=== PATIENT | male | born 1970 ===

== ENCOUNTER 2023-09-07 21:54 | Inpatient (IN) | payer OTHER ==
--- OUTSIDE RECORDS SUMMARY | 2023-09-07 21:58 | XMS REPORT | Continuity of Care Document ---
:1970 Author Organization [facility] t Address [address] [facility] [address] [place] [address] Care Team Providers Name Role Phone Colt Bedoya MD Primary Care Physician [phone] George Milian Attending Clinician Unavailable Pretty Attending Clinician Unavailable [facility] Attending Clinician Unavailable Yong Sal Attending Clinician Unavailable Pretty Admitting Clinician Unavailable Yong Sal Admitting Clinician Unavailable Payers Payer Name Policy Type Policy Number Effective Date Expiration Date [place] (EPO) [id number] 2022 00:00:00 Problems Condition Condition Condition Status Onset Resolution Last Treating Co mments Source Name Details Category Date Date Treatment Clinician Date Colitis Colitis Disease Active 2016-10 [facility]ospita 00 l Non morbid Non morbid Disease Active M ethodi obesity obesity 11-22 due to due to 00:00: Hospita excess excess 00 l calories calories Non morbid Non morbid Disease Active M ethodi obesity obesity 11-22 st due to due to 00:00: Hospita excess excess 00 l calories calories [id number] Primary Problem Comm on osteoarthr Spirit itis of - [facility] left knee [facility] [id number] Arthritis Problem Co mmon [id number] of knee, Spirit right - [facility] Ulcerative Ulcerative Disease Active M ethodi colitis colitis [facility] Irritable Irritable Disease Active Met hodi bowel bowel st syndrome syndrome Hospit a l GI GI Disease Active Methodi (gastroint (gastroint st estinal estinal Hospita bleed) bleed) l Colon Colon Disease Active Methodi polyps polyps [facility] Chronic Chronic Disease Active Methodi diarrhea diarrhea [facility] Allergies, Adverse Reactions, Alerts Allergy Allergy Status Severity Reaction(s) Onset Inactive Treating Comm ents Source Name Type Date Date Clinician Sulfa DA Active U OBSTRUCTION [facility] (Sulfona OF AIRWAY 6-05 Clear mide 00:00: George Antibiot [facility] Penicill DA Active U [facility]STRUCTION [facility] ins OF AIRWAY 6-05 Clear 00:00: George [facility] Penicill Propensi Active 2015-10 Method i ins ty to 12-09 st adverse 00:00: Hospita reaction 00 l s to drug Sulfaben Propensi Active 2015-10 Method i zamide ty to 12-09 st adverse 00:00: Hospita reaction 00 l s to drug No Known DA Active U 2008- [facility] Contrast 3- Clear Allergie 00:00: George s [facility] No Known DA Active U 2008- [facility] Food 3- Clear Allergie 00:00: George s [facility] No Known DA Active U 2009-0 [facility] Other 3- Clear Allergie 00:00: George s [facility] ROCEPHIN DA Active U 2008- [facility] 3- Clear 00:00: George [facility] No Known DA Active U 2008-0 [facility] Drug 2-11 Clear Intolera 00:00: George nces [facility] [id number] Drug Active Unknown Common 85 allergy Spirit [facility] Substanc Substanc Active Unknown Commo n e with e with Spirit sulfonam sulfonam - [facility] lavell lavell St [facility]ur [facility] erial erial mechanis mechanis m of m of action action (substan (substan ce) ce) Family History Family Member Diagnosis Comments Start Date Stop Date Source Natural father Colon cancer [facility] Maternal grandmother Ulcerative colitis [facility] Natural mother Pancreatic cancer [facility] Social History Social Habit Start Date Stop Date Quantity Comments Source History of Tobacco Current Smoker Co mmon Spirit - Use [facility] Sexual orientation Method ist [facility] Gender identity [facility] Alcohol intake 2017-10-11 2017-10-11 Current drinker [facility] 00:00:00 00:00:00 of alcohol Hospital (finding) History of Social 2017-10-11 2017-10-[address] function 00:00:00 00:00:00 Hospital Alcohol Comment 2017-10-11 2017-10-11 scotch 2 glasses [facility] 00:00:00 00:00:00 [facility] Hospital Sex Assigned At [birth year] [facility] 00:[facility] 00:[facility]:00 Hospital Smoking Status Start Date Stop Date Source Current Smoker 2022-11-03 00:00:00 Common Spiri t [facility] Light tobacco smoker 2017-10-11 00:00:00 [facility] Medications Ordered Filled Start Stop Current Ordering Indication Dosage Frequency Signature Comments Components Source Medication Medication Date Date Medication? Clinician (SIG) Name Name [facility] No 30mg Com 11-02 Spirit 00:00: - [facility] OrthoVisc OrthoVisc No 30mg Com 11-02 Spirit 00:00: - [facility] traMADol traMADol 2021-10 No 1{table traMADol HCl 50 MG HCl 50 MG 2-20 t_as_ne HCl 50 MG 00:00: eded} [facility] 2021-10 No 30mg Com 12-20 Spirit 00:00: - [facility] traMADol traMADol 2021-10 No 1{table traMADol HCl 50 MG HCl 50 MG 2-20 t_as_ne HCl 50 MG 00:00: eded} Ortho[facility]ats[facility] 2021-10 No 30mg Com 12-20 Spirit 00:00: - [facility] 00 [facility] Lazaroalog 2021-10 No 40mg Common (Triamcinol (Triamcinol 2-05 S pirit one) one) 00:00: - [facility]I 00 [facility] Orthovisc Orthovisc 2021-10 No 15mg Com mon 2 Spirit 00:00: - [facility] 00 [facility] Bupivicaine Bupivicaine 2021-10 No 2.5mg Common [place] Lawndale 2-05 Spirit 00:00: - [facility] 00 [facility] Lazaroalog 2021-10 No 40mg Common (Triamcinol (Triamcinol 2-05 S pirit one) one) 00:00: - [facility]I 00 [facility] Bupivicaine Bupivicaine 2021-10 No 2.5mg Common [place] Lawndale 2-05 Spirit 00:00: - [facility] 00 [facility] Albert 2021-10 No 40mg Common (Triamcinol (Triamcinol 2-05 S pirit one) one) 00:00: - [facility]I 00 [facility] OrthoVisc OrthoVisc 2021-10 No 15mg Com mon 2 Spirit 00:00: - [facility] 00 [facility] Bupivicaine Bupivicaine 2021-10 No 2.5mg Common [place] Lawndale 2-05 Spirit 00:00: - [facility] 00 [facility] Albert 2021-10 No 40mg Common (Triamcinol (Triamcinol 2-05 S pirit one) one) 00:00: - [facility]I 00 [facility] Bupivicaine Bupivicaine 2021-10 No 2.5mg Common [place] Lawndale 2-05 Spirit 00:00: - [facility] 00 [facility] Orthovisc Orthovisc 0 No 15mg Com tue 8 Spirit 00:00: - [facility] 00 [facility] OrthoVisc OrthoVisc 0 No 15mg Com 06-29 Spirit 00:00: - [facility] 00 [facility] traMADol traMADol 0 No 1{table traMADol HCl 50 MG HCl 50 MG 8-25 t_as_ne HCl 50 MG 00:00: eded} 00 [place] Lazaroalog 2022-0 No 40mg Common (Triamcinol (Triamcinol 8-25 S pirit one) one) 00:00: - [facility]I 00 [facility] Bupivicaine Bupivicaine 2021-0 No 2.5mg Common [place] Lawndale 8-25 Spirit 00:00: - [facility] 00 [facility] Orthovisc Orthovisc 2021-0 No 15mg Com mon 8 Spirit 00:00: - [facility] 00 [facility] traMADol traMADol 2021-0 No 1{table traMADol HCl 50 MG HCl 50 MG 25 t_as_ne HCl 50 MG 00:00: eded} 00 Kenalog Kenalog 2021-0 No 40mg Common (Triamcinol (Triamcinol 8-25 S pirit one) one) 00:00: - [facility]I 00 [facility] Bupivicaine Bupivicaine 2021-0 No 2.5mg Common [place] Lawndale 8-25 Spirit 00:00: - [facility] OrthoVisc OrthoVisc 2021-0 No 15mg Com mon 06-24 Spirit 00:00: - [facility] 00 [facility] Orthovisc Orthovisc 2021-0 No 15mg Com mon 8 Spirit 00:00: - [facility] 00 [facility] OrthoVisc OrthoVisc 2-0 No 15mg Com mon 8- Spirit 00:00: - [facility] 00 [facility] Bupivicaine Bupivicaine 2021-0 No 2.5mg Common [place] Lawndale 6-27 Spirit 00:00: - [facility]I 00 [facility] Kenalog Kenalog 2021-0 No 40mg Common (Triamcinol (Triamcinol 6-27 S pirit one) one) 00:00: - [facility]I 00 [facility] Bupivicaine Bupivicaine 2-0 No 2.5mg Common [place] Lawndale 6-27 Spirit 00:00: - [facility] 00 [facility] Kenalog Kenalog 2021-0 No 40mg Common (Triamcinol (Triamcinol 6-27 S pirit one) one) 00:00: - [facility]I 00 [facility] Bupivicaine Bupivicaine 2-0 No 2.5mg Common [place] Lawndale 4-26 Spirit 00:00: - [facility] Kenalog Kenalog No 40mg Common (Triamcinol (Triamcinol 4-26 S pirit one) one) 00:00: - [facility] Bupivicaine Bupivicaine No 2.5mg Common [place] Lawndale -26 Spirit 00:00: - [facility] Kenalog Kenalog No 40mg Common (Triamcinol (Triamcinol 4-26 S pirit one) one) 00:00: - [facility] DULoxetine 2016-10 Yes 60mg QD Take 60 mg M ethodi (CYMBALTA) 2-[address] 60 MG 12:35: daily. Hospita capsule 39 l zolpidem CR 2016-10 Yes 12.5mg QD Take 12.5 Methodi (AMBIEN CR) 2-[address] 12.5 MG CR 12:35: mouth Hospit a tablet 39 nightly as l needed for sleep. DULoxetine 2016-10 Yes 60mg QD Take 60 mg M ethodi (CYMBALTA) 2-[address] 60 MG 12:35: daily. Hospita capsule 39 l zolpidem CR 2016-10 Yes 12.5mg QD Take 12.5 Methodi (AMBIEN CR) 2-[address] 12.5 MG CR 12:35: mouth Hospit a tablet 39 nightly as l needed for sleep. Zolpidem Zolpidem No Zolpidem Tartrate Tartrate Tartrate buPROPion buPROPion No buPROPion HCl ER (XL) HCl ER (XL) HCl ER (XL) Stelara Stelara No Stelara Zolpidem Zolpidem No Zolpidem Tartrate Tartrate Tartrate buPROPion buPROPion No buPROPion HCl ER (XL) HCl ER (XL) HCl ER (XL) Stelara Stelara No Stelara Vital Signs Vital Name Observation Time Observation Value Comments Source height 2022-11-02 08:00:00 70 [in_i] Common [facility] weight 2022-11-02 08:00:00 384 [lb_av] Common [facility] temperature 2022-11-02 08:00:00 97.8 [degF] Common S pirit [facility] bmi 2022-11-02 08:00:00 55.09 kg/m2 Common S pirit - [facility] blood pressure 2022-11-02 08:00:00 136 mm[Hg] Common Spirit - systolic [facility] blood pressure 2022-11-02 08:00:00 86 mm[Hg] Common Spirit - diastolic [facility] Procedures Procedure Date / Time Performed Performing Clinician Cora infante [id number] 2023-04-11 00:00:00 [facility] Plan of Care Planned Activity Planned Date Details Comments Source Future Scheduled 2023-08-26 [facility] Test 03:05:15 malignant neoplasm of colon (procedure) [code = 708095152] Future Scheduled 2023-08-26 [facility] Test 03:05:15 malignant neoplasm of colon (procedure) [code = 439711212] Future Scheduled 2023-08-26 [facility] Test 03:05:15 malignant neoplasm of colon (procedure) [code = 759402623] Future Scheduled 2023-08-26 COVID-[address] [facility] Test 03:05:15 (#1) [code = COVID-19 VACCINE (#1)] Future Scheduled 2023-08-26 [facility] Test 03:05:15 malignant neoplasm of colon (procedure) [code = 928751087] Future Scheduled 2023-08-26 [facility] Test 03:05:15 malignant neoplasm of colon (procedure) [code = 171608828] Future Scheduled 2023-08-26 SHINGLES VACCINES [facility] Test 03:05:15 (1 of 2) [code = SHINGLES VACCINES (1 of 2)] Future Scheduled 2023-08-26 INFLUENZA VACCINE [facility] Test 03:05:15 (#1) [code = INFLUENZA VACCINE (#1)] Future Scheduled 2023-04-07 [facility] Test 22:53:05 malignant neoplasm of colon (procedure) [code = 043511061] Future Scheduled 2023-04-07 [facility] Test 22:53:05 malignant neoplasm of colon (procedure) [code = 568283641] Future Scheduled 2023-04-07 [facility] Test 22:53:05 malignant neoplasm of colon (procedure) [code = 043714300] Future Scheduled 2023-04-07 COVID-[address] [facility] Test 22:53:05 (#1) [code = COVID-19 VACCINE (#1)] Future Scheduled 2023-04-07 [facility] Test 22:53:05 malignant neoplasm of colon (procedure) [code = 381567965] Future Scheduled 2023-04-07 [facility] Test 22:53:05 malignant neoplasm of colon (procedure) [code = 644665883] Future Scheduled 2023-04-07 SHINGLES VACCINES [facility] Test 22:53:05 (1 of 2) [code = SHINGLES VACCINES (1 of 2)] Future Scheduled 2023-04-07 INFLUENZA VACCINE [facility] Test 22:53:05 [code = INFLUENZA VACCINE] Encounters Start End Encounter Admission Attending Care Care Encounter Source Date/Time Date/Time Type Type Clinicians Facility Department ID 2022-11-02 Outpatient Maicol, [facility] [id number] Common 07:57:02 George [id number] [facility] 2023-08-26 2023-08-26 Outpatient FOG_Stocks_ AOSM AOSM [id number] Arlene 00:00:00 00:00:00 Boris [id number] [facility] 2023-08-21 2023-08-21 Outpatient FOG_Stocks_ AOSM AOSM 650 [id number] Arlene 00:00:00 00:00:00 Boris [id number] [facility] 2023-07-17 2023-07-17 Outpatient FOG_Stocks_ AOSM AOSM [id number] Arlene 00:00:00 00:00:00 Boris [id number] [facility] 2023-06-29 2023-06-29 [facility] [id number] [facility] 13:30:00 13:30:[address] 2023-06-182023-06-18 Outpatient FOG_Stocks_ AOSM AOSM [id number] Arlene 00:00:00 00:00:00 Boris [id number] [facility] 2023-06-17 2023-06-17 Outpatient FOG_Stocks_ AOSM AOSM 650 [id number] Arlene 00:00:00 00:00:00 Boris [id number] [facility] 2023-06-12 2023-06-12 Outpatient FOG_Stocks_ AOSM AOSM 650 [id number] Arlene 00:00:00 00:00:00 Boris [id number] [facility] 2023-05-16 2023-05-16 Outpatient FOG_Stocks_ AOSM AOSM 650 [id number] Arlene 00:00:00 00:00:00 Boris [id number] [facility] 2023-05-16 2023-05-16 Outpatient FOG_Stocks_ AOSM AOSM 650 [id number] Arlene 00:00:00 00:00:00 Boris [id number] [facility] 2023-05-08 2023-05-08 Outpatient FOG_Stocks_ AOSM AOSM 650 [id number] Arlene 00:00:00 00:00:00 Boris [id number] [facility] 2023-05-08 2023-05-08 Outpatient FOG_Stocks_ AOSM AOSM 650 [id number] Arlene 00:00:00 00:00:00 Boris [id number] [facility] 2023-04-15 2023-04-15 Outpatient FOG_Stocks_ AOSM AOSM 650 [id number] Arlene 00:00:00 00:00:00 Boris [id number] [facility] 2023-04-11 2023-04-14 Inpatient EM Stocks, [facility] [id number] [facility] 08:37:00 11:11:00 Yong [place] [facility] 2023-04-13 2023-04-13 Outpatient FOG_Stocks_ AOSM AOSM 650 [id number] Arlene 00:00:00 00:00:00 Boris [id number] [facility] 2023-03-31 2023-03-31 Outpatient GEORGIA Sal [id number] [facility] 16:52:00 16:52:00 Yong Corbin [facility] 2023-03-31 2023-03-31 Outpatient FOG_Stocks_ AOSM AOSM 650 [id number] Arlene 00:00:00 00:00:00 Boris [id number] [facility] 2023-03-30 2023-03-30 Outpatient FOG_Stocks_ AOSM AOSM 650 [id number] Arlene 00:00:00 00:00:00 Boris [id number] [facility] 2023-01-17 2023-01-17 Outpatient FOG_Stocks_ AOSM AOSM 650 [id number] Arlene 00:00:00 00:00:00 Boris [id number] [facility] 2023-01-17 2023-01-17 Outpatient FOG_Stocks_ AOSM AOSM 650 [id number] Arlene 00:00:00 00:00:00 Boris [id number] [facility] 2023-01-10 2023-01-10 (TEL) [facility] [id number] Co mmon 00:00:00 00:00:00 [facility] 2022-11-02 2022-11-02 (IN/ASP) [facility] [id number] C ommon 00:00:00 00:00:00 INJ ASP [facility] Results Test Description Test Time Test Comments Results Result Comments Source VITAMIN D 25-HYDROXY (TOTAL) 2023-04-01 07:22:00 Test Item Value Reference Range Interpretation Comme nts VITAMIN D 25-HYDROXY (TOTAL) 18.6 ng/mL 30.0-100.0 L Vitamin D deficiency has been (test code = VITD25) defined by the [place] of[employer] and an Endocrine Society practic e guideline as alevel of serum 25-OH vitamin D less than 20 ng /mL (1,2).The Endocrine Socie ty went on to further define vitamin Dinsufficiency as a level between 21 and 29 ng/mL (2).1. IOM ([place] of M edicine). 2010. Dietary referen ce intakes for calcium and D. Kumar [place]: The National Subtech ies Press.2. Ashley MF, Chaka GUERRERO, Sandoval RUSHING, et al. Evaluation, veronica atment, and prevention of v itamin D deficiency: an Endocrine Society clinical practi ce guideline. JCEM. 2010; 96(1):1911-30.P erformed At: HD [facility] [address] [id number] Ender Frost MD Ph:[phone] COMPREHENSIVE METABOLIC [id number] 12:49:00 Test Item Value Reference Range Interpretation Comments SODIUM (test code = 142 mmol/L 136-145 N NA) POTASSIUM (test 4.2 mmol/L 3.5-5.1 N code = K) CHLORIDE (test code 106.0 mmol/L 98-107 N = CL) CARBON DIOXIDE 24.5 mmol/L 21-32 N (test code = CO2) GLUCOSE (test code 74 mg/dL 70-110 N = GLU) BLOOD UREA NITROGEN 13 mg/dL 7-18 N (test code = BUN) GLOMERULAR 82.5 >60 The Glomerular FILTRATION RATE Filtration R ate is a (test code = GFR) calculated parameterbased on serum Creatinin e, patient age and sex. GFR valuesless than 60 mL/min/1.73 squ are meters are mikey cative ofChronic Kidne y Disease. Values less than 15 mL/min/1.73squa re meters indicate Kidney failure. The calculation for GFR is based on the CK D-EPI (2020) calculat ion. This formulais race indifferent and is the recommended for marcell for GFRby the N [facility] Found[facility] on for Adults.The GFR will not calculate i f the sex is unknown or if thepatient's ag e is <18 years. CREATININE (test 1.07 mg/dL 0.55-1.30 N code = CREAT) TOTAL PROTEIN (test 7.2 g/dL 6.4-8.2 N code = PROT) ALBUMIN (test code 3.3 g/dL 3.4-5.0 L = ALB) GLOBULIN (test code 3.9 g/dL 2.2-4.2 N = GLOB) ALBUMIN/GLOBULIN 0.9 0.7-2.0 N RATIO (test code = A/G) CALCIUM (test code 9.2 mg/dL 8.2-10.1 N = CA) BILIRUBIN TOTAL 0.40 mg/dL 0.2-1.00 N (test code = BILT) SGOT/AST (test code 27.0 U/L 15-37 N = AST) SGPT/ALT (test code 48.0 U/L 12-78 N = ALT) ALKALINE 111 U/L 46-116 N PHOSPHATASE TOTAL (test code = ALKP) CBC W/AUTO [id number] 12:48:00 Test Item Value Reference Range Interpretation Comments WHITE BLOOD CELL (test code = WBC) 10.7 K/mm3 5.7-10.5 H RED BLOOD CELL (test code = RBC) 6.03 M/mm3 4.2-5.4 H HEMOGLOBIN (test code = HGB) 16.5 g/dL 12-16 H HEMATOCRIT (test code = HCT) 48.3 % 37-47 H MEAN CELL VOLUME (test code = MCV) 80 fL 80-98 N MEAN CELL HGB (test code = MCH) 27.4 pg 27-34 N MEAN CELL HGB CONCENTRATION (test 34.2 g/dL 30.8-34.1 H code = MCHC) RED CELL DISTRIBUTION WIDTH (test 16.2 % 11-16 H code = RDW) PLT (test code = PLT) 402 K/mm3 130-400 H MEAN PLATELET VOLUME (test code = 8.3 fL 8.9-12.1 L MPV) NEUTROPHIL % (test code = NT%) 77.6 % 45-70 H LYMPHOCYTE % (test code = LY%) 10.5 % 20-40 L MONOCYTE % (test code = MO%) 7.5 % 3-10 N EOSINOPHIL % (test code = EO%) 3.0 % 1-5 N BASOPHIL % (test code = BA%) 0.8 % 0.0-1.1 N NEUTROPHIL # (test code = NT#) 8.32 K/mm3 2.00-7.50 H LYMPHOCYTE # (test code = LY#) 1.13 K/mm3 1.50-4.00 L MONOCYTE # (test code = MO#) 0.81 K/mm3 0.2-0.8 H EOSINOPHIL # (test code = EO#) 0.32 K/mm3 0.04-0.4 N BASOPHIL # (test code = BA#) 0.09 K/mm3 0.02-0.10 N MANUAL DIFF REQUIRED (test code = NO MANUAL DIFF MDIFF) NUCLEATED RED BLOOD CELL (test 0 % 0-0 N code = NRBC) PROTHROMBIN [id number] 12:45:00 Test Item Value Reference Range Interpretation Comments PROTHROMBIN TIME 12.1 secs 10.1-12.5 N PATIENT (test code = PTP) INTERNATIONAL NORMAL 1.05 <2.0 RECOMME NDED THERAPEUTIC RATIO (test code = RANGE FOR ORAL INR) ANTICOAGULANTTR EATMENT: CONDITION INRPr ophylaxis of venous throm bosis in 2.0 - 3.0 high- risk medical or surg ical patientsTreatme nt of venous thrombos is 2.0 - 3.0Prevention o f embolism 2.0 - 3.0Prevention o f recurrent embol ism, or 3.0 - 4.5 patie nts with mechanical pros thetic intravascular v hernandez IS PATIENT ON ANTICOAGULANTS ? NHas Lab been notified if Patient is on Heparin Drip? NOIf Yes, orderCBC, OCCULT BLOOD, PT every other day NTHROMBOPLASTIN TIME [id number] 12:45:00 Test Item Value Reference Range Interpretation Comments PTT ACTIVATED (test code = APTT) 33.4 secs 24.9-37.0 N IS PATIENT ON ANTICOAGULANTS ? NHas Lab been notified if Patient is on Heparin Drip? NOIf Yes, orderCBC, OCCULT BLOOD, PT every other day N
[2023-09-07] MEDS ORDERED: ASPIRIN 81 MG CHEWABLE TABLET ONE (22:43)
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
[2023-09-07] MEDS ORDERED: NITROGLYCERIN 1 GM PKT TD ONE (23:31)
[2023-09-07] MEDS ORDERED: FUROSEMIDE 40 MG/4 ML VIAL ONE (23:31)
[2023-09-07] MEDS ORDERED: FAMOTIDINE 20 MG/2 ML VIAL IV ONE (23:31)
[2023-09-08 00:28] LABS: SARS-COV-2 RT PCR NEGATIVE (NEGATIVE)
[2023-09-08 00:39] LABS: Hematocrit 48.6 % (39.6-49.0); Lymphocytes % 8.4 % (15.3-44.8); MCV 79.9 fL (80-100); Platelets 423 thou/uL (152-406); RBC Red Blood Cell Count 6.08 M/uL (4.33-5.43)
[2023-09-08 00:41] LABS: Specific Gravity 1.025 (1.005-1.030); Urine Bacteria None Seen /HPF (<20); Urine Bilirubin NEGATIVE (Negative); Urine Blood Trace (Negative); Urine Clarity Clear (Clear); Urine Color Light-Yellow (Yellow); Urine Glucose NEGATIVE (Negative); Urine Mucus Slight /HPF (None Seen); Urine Protein TRACE (Negative); Urine RBC None Seen /HPF (None Seen); Urine Urobilinogen Normal (Normal); Urine pH 5.5 (5.0-7.0)
[2023-09-08 00:49] LABS: Protime INR 1.03
[2023-09-08 00:53] LABS: Albumin 3.1 g/dL (3.4-5.0); Bilirubin Direct 0.1 mg/dL (0-0.2); Bilirubin Indirect, Calculated 0.2 mg/dL (0.2-0.8); Bilirubin Total 0.3 mg/dL (0.2-1.0); Magnesium 1.7 mg/dL (1.6-2.4); Protein, Total 7.4 g/dL (6.4-8.2); Troponin High Sensitivity 46.2 pg/mL (<58.9)
[2023-09-08] MEDS ORDERED: MAGNESIUM SULFATE 1 gm IVPB 1 GM/100 ML BAG IV ONE (01:14)
[2023-09-08] MEDS ORDERED: carvediloL 6.25 MG TAB ONE (01:14)
[2023-09-08 04:28] VITALS: BMI 54.5
[2023-09-08] MEDS ORDERED: ACETAMINOPHEN 325 MG TABLET PO PRN (07:09)
[2023-09-08] MEDS: LOSARTAN POTASSIUM 50 MG TABLET PO SCH (07:27)
[2023-09-08] MEDS: ASPIRIN EC 81 MG TAB PO SCH (07:27)
[2023-09-08] MEDS: POTASSIUM 25 MEQ EFFERV TAB PO SCH (07:27)
[2023-09-08] MEDS: carvediloL 6.25 MG TAB PO SCH ×2 (07:27→20:19)
[2023-09-08] MEDS: ONDANSETRON 4 MG/2 ML VIAL IV PRN ×2 (07:28→20:18)
[2023-09-08] MEDS: MORPHINE 4 MG/ML SYR IV PRN ×2 (07:28→20:18)
[2023-09-08] MEDS: FAMOTIDINE 20 MG/2 ML VIAL IV SCH ×2 (07:28→20:18)
[2023-09-08] MEDS ORDERED: ONDANSETRON 4 MG (ODT) TAB ONE (07:33)
[2023-09-08] MEDS ORDERED: INFLUENZA VACCINE (for 6+ mo) 0.5 ML DOSE IMVAC ONE (09:00)
[2023-09-08] MEDS ORDERED: FUROSEMIDE 20 MG/ 2ML VIAL IV SCH (09:00)
[2023-09-08] MEDS: FUROSEMIDE 20 MG/ 2ML VIAL IV SCH ×2 (09:00→20:20)
[2023-09-08 11:59] LABS: Arterial Blood Carboxyhemoglob 1.1 % (0-1.5); Blood O2 Saturation 95.5 % (92-98.5)
--- NOTE | 2023-09-08 12:12 | RAD REPORT ---
EXAM DESCRIPTION: RAD - Chest Single View - 09/07/2023 10:37 pm CLINICAL HISTORY: Male, 53 years old, Chest pain;Dyspnea TECHNIQUE: 2 frontal views COMPARISON: None. FINDINGS: Soft tissue attenuation and beam underpenetration limit assessment. Support devices: Overlying telemetry leads. Lungs/pleura: No consolidation, pleural effusion, or pneumothorax. Heart and mediastinum: Cardiomediastinal silhouette has normal size and configuration. Other: No acute osseous findings. Healed fracture deformity of the left clavicle. IMPRESSION: No acute cardiopulmonary findings. Electronically signed by: Sherif Negron MD 09/07/2023 11:04 PM VICE PRESIDENT OF NURSING Due to temporary technical issues with the PACS/Fluency reporting system, reports are being signed by the in house radiologist without review as a courtesy to ensure prompt reporting. The interpreting r adiologist is fully responsible for the content of the report.
--- NOTE | 2023-09-08 12:19 | RAD REPORT ---
EXAM DESCRIPTION: US - Extrem Venous W Compress Khris - 09/07/2023 10:58 pm CLINICAL HISTORY: Male, 53 years old, Pain;Swelling COMPARISON: None. TECHNIQUE: Grayscale and color/spectral Doppler ultrasound of the bilateral lower extremities. FINDINGS: Normal flow and compressibility in the bilateral lower extremities common femoral, greater saphenous, femoral, popliteal, peroneal and posterior tibial veins. No intraluminal thrombus is visu alized. Visualized waveforms demonstrate normal respiratory variability. IMPRESSION: No sonographic evidence of deep venous thrombosis in the imaged bilateral lower extremit ies. Electronically signed by: Sherif Negron MD 09/07/2023 11:08 PM PARTS PRODUCT ANALYST Due to temporary technical issues with the PACS/Fluency reporting system, reports are being signed by the in house radiologist without review as a courtesy to ensure prompt reporting. The interpreting r adiologist is fully responsible for the content of the report.
--- NOTE | 2023-09-08 12:37 | RAD REPORT ---
EXAM DESCRIPTION: CT - Chest For Pe Angio - 09/08/2023 6:51 am CLINICAL HISTORY: Suspected pulmonary embolus. COMPARISON: None. TECHNIQUE: Intravenous low osmolar contrast. Coronal and sagittal reformations including 3D maximu m intensity projections. This exam was performed according to our departmental dose-optimization program, which includes autom ated exposure control, adjustment of the mA and/or kV according to patient size and/or use of iterati ve reconstruction technique. FINDINGS: PULMONARY ARTERIAL SYSTEM: Contrast bolus is adequate. No CT evidence for pulmonary embo lism. CARDIAC: Normal. AORTA/VASCULAR: No aneurysm. LYMPH NODES/MEDIASTINUM: No thoracic adenopathy. CENTRAL AIRWAYS: Central airways are patent. LUNGS: No pulmonary infiltrates or masses. PLEURA: Normal. ESOPHAGUS: Collapsed and not well assessed by CT, without obvious abnormality. THYROID: Negative, where seen. CHEST WALL: Normal. UPPER ABDOMEN: Normal. THORACIC SKELETAL: No acute finding. ADDITIONAL CHEST FINDINGS: None. IMPRESSION: No evidence of pulmonary embolus or other acute thoracic abnormality. Electronically signed by: Gloria Cuevas MD 09/08/2023 02:13 AM [employer] Due to temporary technical issues with the PACS/Fluency reporting system, reports are being signed by the in house radiologist without review as a courtesy to ensure prompt reporting. The interpreting r adiologist is fully responsible for the content of the report.
--- NOTE | 2023-09-08 12:56 | P.HP ---
Certification for Inpatient Patient admitted to: Inpatient With expected LOS: >2 Midnights Practitioner: I am a practitioner with admitting privileges, knowledge of patient current condition, hospital course, and medical plan of care. Services: Services provided to patient in accordance with Admission requirements found in Title 42 Section 412.3 of the Code of Federal Regulations Patient History Date of Service: 09/08/23 Reason for admission: DYSPNEA History of Present Illness: ED IS MORBIDLY OBESE GM WITH SLEEP APNEA WHO HAS NOT BEEN WEARING CPAP, HAS WORSE EDEMA AND DYSPNEA. HAS BEEN TO [facility] AND BEFORE DR. STALLWORTH. HE REPORTS HE IS SHORT OF BREATH. Allergies Penicillins Allergy (Severe, Verified 11/06/12 04:05) Anaphylaxis Sulfa (Sulfonamide Antibiotics) [Sulfa(Sulfonamide Antibiotics)] Allergy (Severe, Verified 11/06/12 04:06) Anaphylaxis Home Medications: Zolpidem Tartrate [Ambien] 10 mg PO BEDTIME #0 tablet 11/07/12 - Past Medical/Surgical History Has patient received pneumonia vaccine in the past: No Diabetic: No -: ULCERATIVE COLITIS -: KNEE SUGERY -: GALLBLADDER - Family History Mother -: Hypertension, Cancer Father -: Other (see notes) Notes: CIRRHOSIS - Social History Smoking Status: Light Tobacco smoker (1-9 cigarettes/day) Alcohol use: No CD- Drugs: No Caffeine use: No Place of Residence: Home Review of Systems 10-point ROS is otherwise unremarkable General: Weakness, Malaise Eyes: As per HPI Physical Examination - Vital Signs Temperature: 97.8 F Blood Pressure: 113/58 Pulse: 72 Respirations: 17 Pulse Ox (%): 96 - Physical Exam General: Acute distress, Moderate distress, Obese HEENT: Atraumatic, PERRLA, Mucous membr. moist/pink, EOMI, Sclerae nonicteric Neck: Supple, 2+ carotid pulse no bruit, No LAD, Without JVD or thyroid abnormality Respiratory: Clear to auscultation bilaterally, Normal air movement Cardiovascular: Regular rate/rhythm, Normal S1 S2 Gastrointestinal: Normal bowel sounds, No tenderness Musculoskeletal: No tenderness Integumentary: No rashes Neurological: Normal gait, Normal speech, Normal strength at 5/5 x4 extr, Normal tone, Normal affect Lymphatics: No axilla or inguinal lymphadenopathy - Studies Laboratory Data (last 24 hrs) 1109/07/23 09/07/23 23:04 23:04 23:04 WBC 11.80 H Hgb 15.7 Hct 48.6 Plt Count 423 H PT 11.3 INR 1.03 Sodium 142 Potassium 4.0 BUN 15 Creatinine 0.99 Glucose 142 H Magnesium 1.7 Total Bilirubin 0.3 AST 18 ALT 34 Alkaline Phosphatase 100 Lipase 49 Assessment and Plan - Problems (Diagnosis) (1) Dyspnea Current Visit: Yes Status: Chronic Plan: POSSIBLE PYLMONARY HTN COR PULMONALE LASIX IV BID PROGNOSIS IS GUARDED CONSUTL DR. VICTORIA AND DR OSBORNE. ECHO PENDING. CATH POSSIBLE. - Advance Directives Does patient have a Living Will: No Does patient have a Durable POA for Healthcare: No
--- NOTE | 2023-09-08 13:07 | P.CNS ---
Date of Consult: 09/08/23 Reason for Consult: Shortness of breath Chief Complaint: DYSPNEA History of Present Illness: Patient is 53 years of age has been complaining of chronic progressive dyspnea over the past year just prior to admission he became acutely worse dyspnea on mild exertion and nearly blacked out was complaining of lower extremity edema left greater than the right has also been complaining of some left rucker pain. To the hospital history of obstructive sleep apnea noncompliant with treatment does not smoke also complained of significant weight gain 70 pounds denies any fever or chills Allergies Penicillins Allergy (Severe, Verified 11/06/12 04:05) Anaphylaxis Sulfa (Sulfonamide Antibiotics) [Sulfa(Sulfonamide Antibiotics)] Allergy (Severe, Verified 11/06/12 04:06) Anaphylaxis Home Medications: Zolpidem Tartrate [Ambien] 10 mg PO BEDTIME #0 tablet 11/07/12 - Past Medical/Surgical History Diabetic: No -: ULCERATIVE COLITIS -: KNEE SUGERY -: GALLBLADDER - Family History Mother Medical History: Hypertension, Cancer Father Medical History: Other (see notes) Notes: CIRRHOSIS - Social History Smoking Status: Current some day smoker Alcohol use: No CD- Drugs: No Caffeine use: No Place of Residence: Home Review of Systems 10-point ROS is otherwise unremarkable Physical Examination Temp Pulse Resp BP Pulse Ox 97.8 F 72 17 113/58 L 96 09/08/23 12:56 09/08/23 12:56 09/08/23 12:56 09/08/23 12:56 09/08/23 12:56 General: Alert, Oriented x3 Neck: Supple Respiratory: Clear to auscultation bilaterally Cardiovascular: Normal pulses, Edema (Edema left greater than the right) Gastrointestinal: Normal bowel sounds, Soft and benign, Non-distended Laboratory Data (last 24 hrs) 09/07/23 09/07/23 09/07/23 23:04 23:04 23:04 WBC 11.80 H Hgb 15.7 Hct 48.6 Plt Count 423 H PT 11.3 INR 1.03 Sodium 142 Potassium 4.0 BUN 15 Creatinine 0.99 Glucose 142 H Magnesium 1.7 Total Bilirubin 0.3 AST 18 ALT 34 Alkaline Phosphatase 100 Lipase 49 - Problems (1) Dyspnea Current Visit: Yes Status: Chronic Plan: Patient is 53 years of age admitted with progressive dyspnea on exertion worse recently patient is arterial blood gases are normal he has a mild microcytosis CT scan is negative chemistries normal have underlying obstructive airways disease obesity related patient is also noncompliant with CPAP I have adjusted his CPAP advised him to try it while he is in the hospital cardiogram is pending continue with diuresis add spironolactone BNP is normal blood pressure is little elevated Qualifiers: Dyspnea type: dyspnea on exertion Qualified Code(s): R06.09 - Other forms of dyspnea
[2023-09-08] MEDS: SPIRONOLACTONE 25 MG TABLET PO SCH ×2 (13:20→20:19)
[2023-09-08] MEDS: ARFORMOTEROL TARTRATE 15 MCG/2 ML VIAL.NEB NEB SCH ×2 (13:21→20:00)
[2023-09-08] MEDS: ENOXAPARIN 40 MG/0.4 ML SQ SCH (16:05)
[2023-09-08] MEDS ORDERED: ENOXAPARIN 40 MG/0.4 ML SQ ONE (16:18)
[2023-09-09] MEDS: MORPHINE 4 MG/ML SYR IV PRN ×2 (02:26→10:50)
[2023-09-09 03:31] LABS: Absolute Lymphocytes (CBC) 1.1 K/uL (0.7-4.9); Hematocrit 46.1 % (39.6-49.0); Lymphocytes % 9.6 % (15.3-44.8); MCV 79.7 fL (80-100); MPV 6.6 fL (7.6-11.3); Platelets 378 thou/uL (152-406); RBC Red Blood Cell Count 5.78 M/uL (4.33-5.43)
[2023-09-09 03:51] LABS: Troponin High Sensitivity 25.5 pg/mL (<58.9)
[2023-09-09 04:03] LABS: Thyroid Stimulating Hormone 4.8 uIU/mL (0.358-3.740)
[2023-09-09] MEDS: ARFORMOTEROL TARTRATE 15 MCG/2 ML VIAL.NEB NEB SCH ×2 (07:25→19:20)
--- NOTE | 2023-09-09 08:14 | P.PN ---
Subjective Date of Service: 09/09/23 Chief Complaint: DYSPNEA Patient is slightly better with the Lasix otherwise no significant change Review of Systems Unremarkable Respiratory: Shortness of Breath Physical Examination - Vital Signs Temperature: 97.9 F Blood Pressure: 192/101 Pulse: 76 Respirations: 18 Pulse Ox (%): 97 - Physical Exam General: Alert, Oriented x3 HEENT: Atraumatic Neck: Supple Respiratory: Clear to auscultation bilaterally Cardiovascular: No edema, Normal pulses, Regular rate/rhythm Gastrointestinal: Normal bowel sounds, Soft and benign Assessment And Plan - Current Problems (Diagnosis) (1) Dyspnea Current Visit: Yes Status: Chronic Plan: Patient still continues to complain of dyspnea very anxious complaining of significant left-sided rucker pain swelling has decreased have ordered an x-ray of his left tibia Labs reviewed echocardiogram is pending there is no evidence of thromboembolism continue with bronchodilators ambulate Qualifiers: Dyspnea type: dyspnea on exertion Qualified Code(s): R06.09 - Other forms of dyspnea
--- NOTE | 2023-09-09 09:06 | RAD REPORT ---
EXAM DESCRIPTION: RAD - Tib Fib Left - 09/09/2023 8:45 am CLINICAL HISTORY: Left rucker pain Pain and swelling COMPARISON: No comparisons FINDINGS: [id number] pretibial edema is present. No underlying bony abnormality present. No so ft tissue gas or foreign body. Large calcaneal spurs noted. Moderate medial knee arthritic changes. IMPRESSION: Moderate pretibial soft tissue swelling and edema seen.
[2023-09-09] MEDS: POTASSIUM 25 MEQ EFFERV TAB PO SCH (09:15)
[2023-09-09] MEDS: carvediloL 6.25 MG TAB PO SCH ×2 (09:15→20:57)
[2023-09-09] MEDS: ASPIRIN EC 81 MG TAB PO SCH (09:15)
[2023-09-09] MEDS: SPIRONOLACTONE 25 MG TABLET PO SCH ×2 (09:15→20:57)
[2023-09-09] MEDS: FUROSEMIDE 20 MG/ 2ML VIAL IV SCH ×2 (09:16→20:56)
[2023-09-09] MEDS: LOSARTAN POTASSIUM 50 MG TABLET PO SCH (09:16)
[2023-09-09] MEDS ORDERED: HYDRALAZINE HCL 20 MG/ML VIAL ONE (11:55)
[2023-09-09] MEDS: ENOXAPARIN 40 MG/0.4 ML SQ SCH (18:03)
[2023-09-09] MEDS ORDERED: ZOLPIDEM TARTRATE 10 MG TABLET PO PRN (19:32)
[2023-09-10] MEDS: ARFORMOTEROL TARTRATE 15 MCG/2 ML VIAL.NEB NEB SCH (07:40)
[2023-09-10] MEDS: carvediloL 6.25 MG TAB PO SCH (08:57)
[2023-09-10] MEDS: LOSARTAN POTASSIUM 50 MG TABLET PO SCH (08:57)
[2023-09-10] MEDS: FUROSEMIDE 20 MG/ 2ML VIAL IV SCH (08:57)
[2023-09-10] MEDS: MORPHINE 4 MG/ML SYR IV PRN (08:57)
[2023-09-10 08:58] VITALS: BP 148/68
[2023-09-10] MEDS: SPIRONOLACTONE 25 MG TABLET PO SCH (08:58)
[2023-09-10] MEDS: ASPIRIN EC 81 MG TAB PO SCH (08:58)
[2023-09-10] MEDS: POTASSIUM 25 MEQ EFFERV TAB PO SCH (08:58)
[2023-09-10] MEDS ORDERED: HOME MED 1 EA UNK (Losartan/Hydrochlorothiazide [Losartan-Hctz 100-25 Mg Tab] 1 EACH Table PO SCH (09:00)
[2023-09-10 09:27] VITALS: TEMP 97.2
[2023-09-10 10:00] VITALS: O2SAT 96
--- NOTE | 2023-09-10 10:59 | P.PN ---
Subjective Date of Service: 09/10/23 Chief Complaint: CHF Doing better Swelling has improved.using CPAP Review of Systems General: Weakness Respiratory: Shortness of Breath Physical Examination - Vital Signs Temperature: 97.2 F Blood Pressure: 148/68 Pulse: 70 Respirations: 16 Pulse Ox (%): 93 - Physical Exam General: Alert, In no apparent distress HEENT: Atraumatic Neck: Supple Respiratory: Clear to auscultation bilaterally Cardiovascular: Regular rate/rhythm, Edema Assessment And Plan - Current Problems (Diagnosis) (1) Dyspnea Current Visit: Yes Status: Chronic Plan: Doing better most cat pt has diastolic CHF, Echo pending. Advised to use CPAP, Weight loss and add Advair. Obesity induced asthma. OP PFT.fluid restriction, DAVIDE diet/ F/u OP .CPAP adjusted Pt used 3-4 hours Qualifiers: Dyspnea type: dyspnea on exertion Qualified Code(s): R06.09 - Other forms of dyspnea
--- NOTE | 2023-09-10 11:49 | P.PN ---
Subjective Date of Service: 09/09/23 Chief Complaint: EDEMA Subjective: Improving HE HAS LONG COMPLAINTS ABOUT THE SAME ISSUES, DYSPNEA, FATIGUE, EDEMA. HE HAS NOT BEEN USING HIS CPAP AND IS NOW HAVING COMPLICATIONS. HE HAS NO CHEST PAIN. Review of Systems 10-point ROS is otherwise unremarkable General: Weakness, As per HPI Physical Examination - Vital Signs Temperature: 97.2 F Blood Pressure: 148/68 Pulse: 70 Respirations: 16 Pulse Ox (%): 93 - Physical Exam General: Oriented x3, Obese (MORBIDLY.) HEENT: Atraumatic, PERRLA, EOMI Neck: Supple, JVD not distended Respiratory: Clear to auscultation bilaterally, Normal air movement Cardiovascular: Regular rate/rhythm, Normal S1 S2 Gastrointestinal: Normal bowel sounds, No tenderness Musculoskeletal: No tenderness Integumentary: No rashes Neurological: Normal speech, Normal tone, Normal affect Lymphatics: No axilla or inguinal lymphadenopathy - Studies Medications List Reviewed: Yes Assessment And Plan - Current Problems (Diagnosis) (1) Dyspnea Status: Chronic Plan: POSSIBLE PYLMONARY HTN COR PULMONALE LASIX IV BID PROGNOSIS IS GUARDED CONSUTL DR. VICTORIA AND DR OSBORNE. ECHO PENDING. CATH POSSIBLE. Qualifiers: Dyspnea type: dyspnea on exertion Qualified Code(s): R06.09 - Other forms of dyspnea (2) Morbid obesity with BMI of 50.0-59.9, adult Status: Chronic Plan: HE SAYS HE DOES NOT EAT MUCH BUT I AM NOT SURE HOW YOU CAN GAIN SO MUCH WEIGHT WITHOUT. HE SHOULD GO FOR WEIGHT LOSS SURGERY HE IF HE DOES NOT FOLLOW DIET HE WAS GIVEN OZEMPIC BUT HE DID NOT USE IT. (3) RAFA (obstructive sleep apnea) Status: Chronic Plan: HE PROMISES TO USE CPAP DAILY. (4) Pulmonary hypertension Status: Acute
--- NOTE | 2023-09-10 11:59 | P.DS ---
Admission Date: 09/08/23 Discharge Date: 09/10/23 Disposition: ROUTINE DISCHARGE Discharge Condition: SERIOUS Reason for Admission: EDEMA - Problems (1) Dyspnea Status: Chronic Qualifiers: Dyspnea type: dyspnea on exertion Qualified Code(s): R06.09 - Other forms of dyspnea (2) Morbid obesity with BMI of 50.0-59.9, adult Status: Chronic (3) RAFA (obstructive sleep apnea) Status: Chronic (4) Pulmonary hypertension Status: Acute Brief History of Present Illness: ED IS MORBIDLY OBESE GM WITH SLEEP APNEA WHO HAS NOT BEEN WEARING CPAP, HAS WORSE EDEMA AND DYSPNEA. HAS BEEN TO [facility] AND BEFORE DR. STALLWORTH. HE REPORTS HE IS SHORT OF BREATH. 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 HE CLAIMS THAT HE DOES NOT EAT BAD. I ASKED HIM THAT HE SHOULD AVOID SALT AND PUT HIMSELF ON PALEO DIET TO LOSE WEIGHT. HE CLAIMS THAT HE DOES NOT EAT SALT BUT NURSE LATER TOLD ME THAT HE ASKED HIS TO BRING HIM LARGE PLATE OF ITALIAN FRIED RICE WITH SOY SAUCE AND HE HE ATE IT. IT IS UPTO HIM TO AVOID EARLY COMPLICATIONS OF MORBID OBESITY BY EATING WELL. HE SEEMS TO HAVE PROLONGED AND REPETITIVE COMPLAINTS ABOUT THE SAME ISSUES. HE HAS BURNING PAIN L ANT LEG AND IS WORRIED USUSAL. THIS CAN BE A EARLY SIGN OF SHINGLES. HE WILL WATCH FOR SIGNS. HE IS STABLE TO GO HOME WITH POOR PROGNOSIS IF HE DOES NOT HELP HIMSELF BY LOSING WEIGHT. Vital Signs/Physical Exam: Temp Pulse Resp BP Pulse Ox 97.2 F 70 16 148/68 H 93 09/10/23 11:49 09/10/23 11:49 09/10/23 11:49 09/10/23 11:49 09/10/23 11:49 Laboratory Data at Discharge: WBC 11.00 thou/uL (4.3-10.9) H 09/09/23 03:16 Hgb 15.2 g/dL (13.6-17.9) 09/09/23 03:16 Hct 46.1 % (39.6-49.0) 09/09/23 03:16 Plt Count 378 thou/uL (152-406) 09/09/23 03:16 PT 11.3 SECONDS (9.5-12.5) 09/07/23 23:04 INR 1.03 09/07/23 23:04 Sodium 140 mEq/L (136-145) 09/09/23 03:16 Potassium 4.0 mEq/L (3.5-5.1) 09/09/23 03:16 Potassium 4.0 mEq/L (3.5-5.1) 09/09/23 03:16 BUN 15 mg/dL (7-18) 09/09/23 03:16 Creatinine 1.03 mg/dL (0.70-1.30) 09/09/23 03:16 Glucose 109 mg/dL (74-106) H 09/09/23 03:16 Magnesium 1.7 mg/dL (1.6-2.4) 09/07/23 23:04 Total Bilirubin 0.3 mg/dL (0.2-1.0) 09/07/23 23:04 AST 18 U/L (15-37) 09/07/23 23:04 ALT 34 U/L (16-61) 09/07/23 23:04 Alkaline Phosphatase 100 U/L (45-117) 09/07/23 23:04 Lipase 49 U/L (13-75) 09/07/23 23:04 Home Medications: Zolpidem Tartrate [Ambien] 10 mg PO BEDTIME #0 tablet 11/07/12 Losartan/Hydrochlorothiazide [Losartan-Hctz 100-25 mg Tab] 1 tab PO DAILY 09/09/23 Fluticasone/Salmeterol [Advair 250-50 Diskus] 1 each IH BID 30 Days #60 aero 09/10/23 Furosemide 40 mg PO DAILY #90 09/10/23 Spironolactone 50 mg PO DAILY #90 09/10/23 Topiramate 50 mg PO BID #180 09/10/23 New Medications: Fluticasone/Salmeterol [Advair 250-50 Diskus] 1 each IH BID 30 Days #60 aero Furosemide 40 mg PO DAILY #90 Spironolactone 50 mg PO DAILY #90 Topiramate 50 mg PO BID #180 Physician Discharge Instructions: PROBLEM: CHF, dyspnea GOAL: Clear understanding of disease process INSTRUCTIONS: Follow up with PCP - Dr Milina in 1 week Follow up with Cardiology - Dr Mcpherson in 1-2 weeks Take medications as prescribed Return to ER for worsening of symptoms Diet: Low Sodium Activity: as tolerated DME DME: Date Ordered: Name of Company: [employer] Services Needed: Name of Company: Date or Referral: IMMUNIZATION Influenza Vaccine Indicated: Yes Influenza Vaccine Given: No Date Given: Pneumonia Vaccine Indicated: No Pneumonia Vaccine Given: Date Given: Followup: Unknown,U [Primary Care Provider] -
--- NOTE | 2023-09-10 14:09 | EKG ---
Test Date: 2023-09-09 Test Time: 11:55:58 Anodiser: [employer] MEASUREMENT RESULTS: Intervals: Rate: 75 NV: 134 QRSD: 136 QT: 408 QTc: 455 [place]: P: 48 NV: 134 QRS: -40 T: 19 INTERPRETIVE STATEMENTS: Normal sinus rhythm Left axis deviation Right bundle branch block Minimal voltage criteria for LVH, may be normal variant Abnormal ECG Compared to ECG 09/07/2023 23:08:09 Left ventricular hypertrophy now present Electronically Signed On 09-10-23 14:06:58 GROUND [employer]ES PERSON by Donte Mcpherson
--- NOTE | 2023-09-10 14:18 | EKG ---
Test Date: 2023-09-07 Test Time: 23:08:09 Manager Lean: NIELS MEASUREMENT RESULTS: Intervals: Rate: 89 MS: 128 QRSD: 138 QT: 390 QTc: 474 [place]: P: 34 MS: 128 QRS: -41 T: 20 INTERPRETIVE STATEMENTS: Normal sinus rhythm Left axis deviation Right bundle branch block Abnormal ECG Compared to ECG 11/05/2012 15:26:39 Left-axis deviation now present Right bundle-branch block now present Incomplete right bundle-branch block no longer present Electronically Signed On 09-10-23 14:09:38 CABLE MOCK UP ASSEMBLER by Donte Mcpherson
[2023-09-10] MEDS ORDERED: ZOLPIDEM TARTRATE 10 MG TABLET PO SCH (21:00)
--- NOTE | 2023-09-12 07:08 | ECHO ---
HEIGHT: 5 ft 10 in WEIGHT: 380 lb 0 oz DATE OF STUDY: 09/09/[address]: Gabe Pineda MD 2-DIMENSIONAL: YES M.MODE: YES DOPPLER: YES COLOR FLOW: YES TDS: PORTABLE: DEFINITY: BUBBLE STUDY: DIAGNOSIS: CONGESTIVE HEART FAILURE CARDIAC HISTORY: CATHERIZATION: SURGERY: PROSTHETIC VALVE: PACEMAKER: MEASUREMENTS (cm) DIASTOLIC (NORMALS) SYSTOLIC (NORMALS) IVSd 1.1 (0.6-1.2) LA Diam 4.2 (1.9-4.0) LVEF 72% LVIDd 5.2 (3.5-5.7) LVIDs 3.0 (2.0-3.5) %FS 42% LVPWd 1.2 (0.6-1.2) Ao Diam 3.3 (2.0-3.7) 2 DIMENSIONAL ASSESSMENT: RIGHT ATRIUM: NORMAL LEFT ATRIUM: NORMAL RIGHT VENTRICLE: NORMAL LEFT VENTRICLE: NORMAL TRICUSPID VALVE: TRACE TRICUSPID REGURGITATION MITRAL VALVE: MILD MITRAL REGURGITATION PULMONIC VALVE: NORMAL AORTIC VALVE: NORMAL PERICARDIAL EFFUSION: NONE AORTIC ROOT: NORMAL LEFT VENTRICULAR WALL MOTION: NORMAL DOPPLER/COLOR FLOW: SEE BELOW COMMENTS: 1. NORMAL LEFT VENTRICULAR EJECTION FRACTION 60-65% 2. NORMAL WALL MOTION 3. MILD MITRAL REGURGITATION 4. TRACE TRICUSPID REGURGITATION TECHNOLOGIST: CRISTOBAL CALI
== END 2023-09-10 10:58 | disposition home or self-care (01) | DRG 204 ==
LOC: ER 21:54 → ERHOLD 09-08 02:33 → 4TH 09-08 17:03
PROVIDERS: ADMIT Internal Medicine; ATTEND Internal Medicine
PROC: 5A09457 Assistance with Respiratory Ventilation, 24-96 Consecutive Hours, Continuous Positive Airway Pressure (ICD-10-PCS; principal; 2023-09-08)
DX: R06.09 Other forms of dyspnea (principal); Z68.43 Body mass index [BMI] 50.0-59.9, adult; E66.01 Morbid (severe) obesity due to excess calories; I10 Essential (primary) hypertension; F41.9 Anxiety disorder, unspecified; I27.20 Pulmonary hypertension, unspecified; I27.81 Cor pulmonale (chronic); G47.33 Obstructive sleep apnea (adult) (pediatric); F17.210 Nicotine dependence, cigarettes, uncomplicated; Z88.2 Allergy status to sulfonamides; Z88.0 Allergy status to penicillin; Z90.49 Acquired absence of other specified parts of digestive tract; Z11.52 Encounter for screening for COVID-19; Z96.651 Presence of right artificial knee joint; Z79.899 Other long term (current) drug therapy; Z91.199 Patient's noncompliance with other medical treatment and regimen due to unspecified reason
CPT/HCPCS: 0241U; 36415; 36600; 71045; 71275; 80048; 80076; 81001; 82805; 83690; 83735; 83880; 84132; 84439; 84443; 84484; 85025; 85379; 85610; 93005; 93306; 93970; 96374; 96375; 99284; J0360; J1650; J1940; J2405; J3475; J7605; Q0162; Q9967

== ENCOUNTER 2023-10-11 08:00 | Day surgery (SDC) | payer OTHER ==
[2023-10-07 14:13] LABS: Absolute Lymphocytes (CBC) 1.4 K/uL (0.7-4.9); Hematocrit 48.9 % (39.6-49.0); Lymphocytes % 8.7 % (15.3-44.8); MCV 79.3 fL (80-100); MPV 6.5 fL (7.6-11.3); Platelets 484 thou/uL (152-406); RBC Red Blood Cell Count 6.17 M/uL (4.33-5.43)
[2023-10-07 14:17] LABS: Protime INR 1.08
[2023-10-07 14:25] LABS: Potassium 4.1 mEq/L (3.5-5.1)
[2023-10-07 14:47] LABS: Blood Morphology Comment NOT SEEN (NOT SEEN); Platelet Estimate ADEQ
[2023-10-11] MEDS ORDERED: NA CHLORIDE 0.9% 500 ML ONE (08:42)
[2023-10-11] MEDS ORDERED: HEPA 1000U/500MLS 2,000 UNIT/1,000 ML BAG IV ONE (10:14)
[2023-10-11] MEDS ORDERED: LIDOCAINE 1% 20 ML MDV ONE (10:14)
[2023-10-11] MEDS ORDERED: VERAPAMIL HCL 10 MG/4 ML VIAL IV ONE (10:17)
[2023-10-11] MEDS ORDERED: FENTANYL CITR 100 MCG/2 ML ONE (10:18)
[2023-10-11] MEDS ORDERED: ATROPINE SULF 1 MG/10 ML SYR IV ONE (10:18)
[2023-10-11] MEDS ORDERED: MIDAZOLAM HCL 2 MG/2 ML INJ ONE ×2 (10:18→10:52)
[2023-10-11] MEDS ORDERED: TICAGRELOR 90 MG TABLET PO ONE (10:18)
[2023-10-11] MEDS ORDERED: ASPIRIN 325 MG TAB ONE (10:19)
[2023-10-11] MEDS ORDERED: CLOPIDOGREL 75 MG TABLET ONE (10:19)
[2023-10-11] MEDS ORDERED: HEPARIN 5000 UNIT/ML 1 ML VIAL ONE (10:19)
[2023-10-11] MEDS ORDERED: HEPARIN 10,000 UNIT/10 ML VIAL IV ONE (10:20)
[2023-10-11 13:39] VITALS: BP 156/91; O2SAT 97
== END 2023-10-11 13:20 | disposition home or self-care (01) ==
LOC: CCL 08:00
PROVIDERS: ATTEND Internal Medicine
DX: I25.10 Atherosclerotic heart disease of native coronary artery without angina pectoris (principal); I10 Essential (primary) hypertension; G47.30 Sleep apnea, unspecified; E66.01 Morbid (severe) obesity due to excess calories; F17.210 Nicotine dependence, cigarettes, uncomplicated; Z79.899 Other long term (current) drug therapy; Z88.0 Allergy status to penicillin; Z88.2 Allergy status to sulfonamides; Z82.49 Family history of ischemic heart disease and other diseases of the circulatory system
CPT/HCPCS: 36415; 76937; 80048; 85025; 85610; 85730; 93460; 99152; 99153; C1893; J0461; J1644; J2001; J2250; J3010; J7040; Q9966